=== PATIENT | female | born 1985 | race Caucasian/White ===

== ENCOUNTER 2021-05-29 06:58 | Day surgery (SDC) | payer OTHER ==
[~2021-05-29] VITALS: Ht 162.6 cm; Wt 66.2 kg
[2021-05-29] MEDS ORDERED: fentaNYL citrate 0.05 MG/ML VIAL ONE (09:12)
[2021-05-29] MEDS ORDERED: MIDAZOLAM 2 MG/2 ML VIAL ONE (09:13)
[2021-05-29] MEDS ORDERED: LIDOCAINE 2% 100 MG/5 ML UJET TP ONE (09:13)
[2021-05-29] MEDS ORDERED: fentaNYL citrate 0.05 MG/ML VIAL IVP ONE (10:50)
[2021-05-29] MEDS ORDERED: MIDAZOLAM 2 MG/2 ML VIAL IVP ONE (10:50)
== END 2021-05-29 11:00 | disposition home or self-care (01) ==
LOC: MOR 06:58 → MMU 06:59 → MOR 11:00
PROVIDERS: ATTEND Internal Medicine Gastroenterology
DX: K62.5 Hemorrhage of anus and rectum (principal); K20.90 Esophagitis, unspecified without bleeding; R11.0 Nausea; K44.9 Diaphragmatic hernia without obstruction or gangrene; K64.8 Other hemorrhoids; K29.70 Gastritis, unspecified, without bleeding; Z90.49 Acquired absence of other specified parts of digestive tract; Z79.899 Other long term (current) drug therapy; Z20.822 Contact with and (suspected) exposure to COVID-19
CPT/HCPCS: 36415; 43239; 45378; 81025; 86677; 87426; J2250; J3010